=== PATIENT | female | born 1965 | race Caucasian/White ===

== ENCOUNTER → 2019-06-15 | Outpatient (CLI) | payer OTHER ==
--- NOTE | 2019-06-15 16:11 | Diagnostic Imaging Report ---
Exam: Bone mineral density study. History: Physical exam Comparison: None available. Discussion: Evaluation of the left hip and lumbar spine was performed. The study is technically adequate. The patient's fracture risk is compared to an age-matched control. The patient denies prior surgery/fracture of the spine, hips or forearm. Left hip femoral neck bone mineral density: 0.9 g/cm2, T-score is 0.1, Z-score is 1.1. Left hip total bone mineral density: 1 g/cm2, T-score is 0.7, Z-score is 1.3. Lumbar spine total bone mineral density: 1.1 g/cm2, T-score is 0.3, Z-score is 1.3. Impression: Bone mineralization by WHO Classification is normal, the fracture risk is not increased. Signed by: Dr. Sabas Tucker D.O., M.M.M. on 06/15/2019 4:08 PM
--- NOTE | 2019-06-15 16:17 | Diagnostic Imaging Report ---
EXAMINATION: CHEST 2 VIEWS INDICATION: Screening COMPARISON: None FINDINGS: LINES/TUBES:None LUNGS:The lungs are well-inflated. No focal consolidation or pulmonary edema. PLEURA:No pleural effusion or pneumothorax. MEDIASTINUM:The cardiomediastinal silhouette appears normal in size and shape. BONES/SOFT TISSUES:No acute osseous injury. ABDOMEN:No free air under the diaphragm. IMPRESSION: No focal pneumonia or pulmonary edema. Signed by: Smiley Cook MD on 06/15/2019 4:13 PM
== END | disposition home or self-care (01) ==
LOC: RAD 13:00 → EDSTATUS 06-28 11:49
PROVIDERS: ATTEND Internal Medicine
DX: Z00.00 Encounter for general adult medical examination without abnormal findings (principal)
CPT/HCPCS: 71046; 77067; 77080